=== PATIENT | male | born 1970 | race Caucasian/White ===

== ENCOUNTER 2019-12-04 18:53 | Inpatient (IN) | payer OTHER ==
[~2019-12-04] VITALS: Ht 180.3 cm; Wt 110.0 kg
[~2019-12-04 18:53] MED LIST: CELEBREX 1100 MG/CAP PO; FLEXERIL 1010 MG/TAB PO; MAXALT MLT5 MG PO; NEXIUM 40MG40 MG PO; PRINIVIL20 MG PO; TOPROL XL 50MG50 MG PO; TYLENOL 8 HR PO; ZYRTEC 10MG10 MG PO
[2019-12-04 20:37] VITALS: BP 137/70; PULSE 71; TEMP 98.5
[2019-12-04] MEDS ORDERED: ACIPHEX20 MG PO (20:49)
[2019-12-04] MEDS ORDERED: CELEBREX 200MG200 MG PO (20:49)
[2019-12-04] MEDS ORDERED: TYLENOL 8 HR PO ×2 (20:50→20:51)
[2019-12-04] MEDS ORDERED: MEN'S ONE DAIL1 EACH PO (20:50)
[2019-12-04] MEDS ORDERED: HYGROTON 2525 MG/TAB PO (20:52)
--- NOTE | 2019-12-04 20:54 | NUR ---
Pt arrived to unit from EMS around 2029. Pt is alert and oriented with VSS. PT has IV to right forearm with levaquin running started at [facility]. Pt c/o left sided abdominal pain. Dx with diverticulitis at [facility]. Has had c/o diarrhea off and on for last week. Dr. Branch consulted. Will review orders and continue meds per orders. Denies needs at this time. Call light within reach, will continue to monitor
[2019-12-04 23:33] VITALS: BP 128/52; PULSE 72; TEMP 98.6
[2019-12-05 04:15] VITALS: BP 130/61; PULSE 66; TEMP 98.2
--- NOTE | 2019-12-05 06:36 | NUR ---
Pt has rested most of night. flagyl infusing. No issues. PRN dilaudid given as pt c/o LLQ abd pain. Denies needs at this time. Call light within reach, will continue to monitor
[2019-12-05 06:45] LABS: BASO # 0.1 (0.0-0.2); BASO % 0.4 % (0.0-2.0); EOS # 0.1 (0.0-0.7); EOS % 0.5 % (0-4.0); GRAN # 10.5 (1.4-6.5); GRAN % 77.5 % (42.2-75.2); HEMATOCRIT 38.2 % (42.0-52.0); HEMOGLOBIN 12.8 g/dl (13.5-18.0); LYMPH # 2.1 (1.2-3.4); LYMPH % 15.6 % (20.0-51.0); MEAN CELL VOLUME 93 fl (80.0-100.0); MEAN CORPUSCULAR HEMOGLOBIN 31 pg (27.0-31.0); MEAN CORPUSCULAR HGB CONC 34 g/dl (33.0-37.0); MEAN PLATELET VOLUME 11.1 fl (7.4-10.4); MONO # 0.7 (0.1-0.6); MONO % 5.3 % (1.7-9.3); PLATELET COUNT 379 K/mm3 (130-400); RED BLOOD COUNT 4.13 M/mm3 (4.20-5.60); REDCELL DISTRIBUTION WIDTH-CV 12.2 % (11.5-14.5)
[2019-12-05 07:01] LABS: ALBUMIN 3.7 gm/dL (3.5-5.0); BILIRUBIN,TOTAL 0.4 mg/dL (0.0-1.0); CALCIUM 8.8 mg/dL (8.4-10.2); CHOLESTEROL RISK RATIO 8.5; CREATININE, serum 0.97 (0.66-1.25); POTASSIUM 3.5 mmol/L (3.4-5.0); TOTAL PROTEIN 7.1 gm/dL (6.4-8.2)
[2019-12-05 07:30] VITALS: BP 131/78; PULSE 69; TEMP 98
--- NOTE | 2019-12-05 10:56 | NUR ---
SW met with the patient to discuss discharge plan. The patient lives in [place] with his , Susan ([phone]). He reports independence with ADLs and does not have any DME. The patient's PCP is Dr. Marte on [address] and he receives his medications at [facility]. He reports no difficulties obtaining his meds. The patient does not have advanced directives and he was not interested in completing them at this time. The patient plans to return home with his upon discharge. No additional needs at this time.
[2019-12-05 11:44] VITALS: BP 127/70; PULSE 61; TEMP 98
--- NOTE | 2019-12-05 11:51 | NUR ---
Dr Branch here to see patient.
--- NOTE | 2019-12-05 11:53 | NUR ---
First visit from the tarp repairer. No needs right now.
--- NOTE | 2019-12-05 12:00 | NUR ---
Patient alert and oriented, answers questions appropriately. See assessment. Abdomen soft, non tender, non distended. +Flatus. +Bowel movement. C/o mild pain to LLQ/RLQ. No other c/o at this time.
[2019-12-05 16:16] VITALS: BP 133/71; PULSE 63; TEMP 97.9
[2019-12-05 19:42] VITALS: BP 130/59; PULSE 63; TEMP 98.3
--- NOTE | 2019-12-05 21:06 | NUR ---
PATIENT IN BED. REPORTS LLQ PAIN. ABDOMEN SOFT, BOWEL SOUNDS HYPOACTIVE. DENIES FLATUS. IV SITE TO RIGHT FOREARM WITHOUT REDNESS OR SWELLING. TAKES SCHEDULED TYLENOL AT THIS TIME.
--- NOTE | 2019-12-05 23:35 | NUR ---
Pt denies need for pain meds at this time.
[2019-12-05 23:37] VITALS: BP 109/45; PULSE 62; TEMP 98
[2019-12-06 03:53] VITALS: BP 130/64; PULSE 64; TEMP 97.8
--- NOTE | 2019-12-06 04:00 | NUR ---
Denies need for pain meds, takes scheduled Tylenol only.
[2019-12-06 07:43] LABS: BASO % 0.3 % (0.0-2.0); EOS # 0.1 (0.0-0.7); EOS % 0.4 % (0-4.0); GRAN # 10.7 (1.4-6.5); GRAN % 77.3 % (42.2-75.2); HEMATOCRIT 41.8 % (42.0-52.0); HEMOGLOBIN 13.7 g/dl (13.5-18.0); LYMPH # 2.2 (1.2-3.4); LYMPH % 16.2 % (20.0-51.0); MEAN CELL VOLUME 93 fl (80.0-100.0); MEAN CORPUSCULAR HEMOGLOBIN 31 pg (27.0-31.0); MEAN CORPUSCULAR HGB CONC 33 g/dl (33.0-37.0); MEAN PLATELET VOLUME 10.9 fl (7.4-10.4); MONO # 0.7 (0.1-0.6); MONO % 5.2 % (1.7-9.3); PLATELET COUNT 408 K/mm3 (130-400); RED BLOOD COUNT 4.48 M/mm3 (4.20-5.60); REDCELL DISTRIBUTION WIDTH-CV 12.1 % (11.5-14.5)
[2019-12-06 07:56] VITALS: BP 125/57; PULSE 67; TEMP 97.8
[2019-12-06 07:58] LABS: CALCIUM 9.4 mg/dL (8.4-10.2); POTASSIUM 4.2 mmol/L (3.4-5.0)
--- NOTE | 2019-12-06 09:24 | NUR ---
Dr Trevino here to see patient.
--- NOTE | 2019-12-06 09:28 | NUR ---
Patient alert and oriented, answers questions appropriately. See assessment. Abdomen soft, non tender, non distended. Bowel sounds hyperactive x4 quads. +Flatus. C/o mild LLQ/LUQ pain. No other c/o at this time.
[2019-12-06 11:51] VITALS: BP 133/69; PULSE 59; TEMP 99.1
--- NOTE | 2019-12-06 14:07 | NUR ---
Initial visit; Patient thanked Pulp Operator for stopping and wishing him well.
[2019-12-06 16:41] VITALS: BP 127/72; PULSE 58; TEMP 98.5
[2019-12-06] MEDS ORDERED: OMNICEF 300MG300 MG PO (17:17)
[2019-12-06] MEDS ORDERED: FLAGYL500 MG PO (17:18)
--- NOTE | 2019-12-06 19:14 | NUR ---
Discharge instructions reviewed with patient, verbalized understanding.
--- NOTE | 2019-12-06 19:37 | NUR ---
Patient left the floor at 1930 via wheelchair escorted by this nurse and patients spouse. No questions or concerns cerbalized at this tie. Patient taked to front doors where left by private vehicle.
== END 2019-12-06 19:30 | disposition home or self-care (01) | DRG 392 ==
LOC: SURG 18:53
PROVIDERS: Nurse Practitioner Family; Physician Assistant; ADMIT Family Medicine
DX: K57.20 Diverticulitis of large intestine with perforation and abscess without bleeding (principal); E78.5 Hyperlipidemia, unspecified; K21.9 Gastro-esophageal reflux disease without esophagitis; I34.0 Nonrheumatic mitral (valve) insufficiency; K59.00 Constipation, unspecified; K57.90 Diverticulosis of intestine, part unspecified, without perforation or abscess without bleeding; K40.90 Unilateral inguinal hernia, without obstruction or gangrene, not specified as recurrent; K42.9 Umbilical hernia without obstruction or gangrene; K57.30 Diverticulosis of large intestine without perforation or abscess without bleeding
CPT/HCPCS: 99222-AI; 99239; A4216; C9113; J0696; J1170; J1644; J7030

== ENCOUNTER → 2020-10-09 | Outpatient (CLI) | payer OTHER ==
[~2020-10-09] MED LIST changes: +ACIPHEX20 MG PO; +CELEBREX 200MG200 MG PO; +FLAGYL500 MG PO; +HYGROTON 2525 MG/TAB PO; +MEN'S ONE DAIL1 EACH PO; +OMNICEF 300MG300 MG PO
== END | disposition still patient (30) ==
LOC: COL.RAD 08:00
DX: M51.36 Other intervertebral disc degeneration, lumbar region (principal); M47.816 Spondylosis without myelopathy or radiculopathy, lumbar region

== ENCOUNTER 2022-04-26 10:55 | Emergency (ER) | payer OTHER ==
[~2022-04-26] VITALS: Ht 180.3 cm; Wt 122.7 kg
[2022-04-26 11:30] VITALS: BP 121/75; TEMP 98
[2022-04-26] MEDS ORDERED: NORCO 325 MG-51 TAB PO (12:36)
[2022-04-26 13:11] VITALS: PULSE 56
== END 2022-04-26 13:11 | disposition home or self-care (01) ==
LOC: COL.ER 10:55
DX: S50.01XA Contusion of right elbow, initial encounter (principal); Z28.310 Unvaccinated for COVID-19; W11.XXXA Fall on and from ladder, initial encounter